=== PATIENT | female | born 1985 | race Two or more races ===

== ENCOUNTER 2020-12-29 06:38 | Day surgery (SDC) | payer OTHER | END 2020-12-29 17:41 | disposition home or self-care (01) | LOC: CIR.AMB 06:38 | PROVIDERS: ATTEND Obstetrics & Gynecology | DX: Z30.2 Encounter for sterilization (principal); N73.6 Female pelvic peritoneal adhesions (postinfective); Z20.822 Contact with and (suspected) exposure to COVID-19 ==